=== PATIENT | female | born 1995 | race Two or more races ===

== ENCOUNTER 2022-05-24 21:08 | Inpatient (IN) | payer OTHER ==
[~2022-05-24] VITALS: Ht 152.4 cm; Wt 95.3 kg
== END 2022-05-27 18:18 | disposition home or self-care (01) | DRG 419 ==
LOC: ER 21:08 → SURH 05-25 11:18
PROVIDERS: Surgery; ADMIT Internal Medicine; ATTEND Internal Medicine
PROC: BW40ZZZ Ultrasonography of Abdomen (ICD-10-PCS; 2022-05-24)
PROC: BF13YZZ Fluoroscopy of Gallbladder and Bile Ducts using Other Contrast (ICD-10-PCS; 2022-05-26)
PROC: 0FT44ZZ Resection of Gallbladder, Percutaneous Endoscopic Approach (ICD-10-PCS; principal; 2022-05-26 08:00)
DX: K80.10 Calculus of gallbladder with chronic cholecystitis without obstruction (principal); Z20.822 Contact with and (suspected) exposure to COVID-19